=== PATIENT | male | born 1950 | race Hispanic/Latino ===

== ENCOUNTER 2020-05-31 08:17 | Observation (INO) | payer MEDICARE ==
[~2020-05-31] VITALS: Ht 167.6 cm; Wt 79.8 kg
[2020-05-31] MEDS ORDERED: CEFEPIME 1GM/NS 0.9% 50 ML 50 ML IV STA (08:28)
[2020-05-31] MEDS ORDERED: PIPER-TAZ 3.375 GM 50 ML IV STA (08:40)
[2020-05-31 08:50] LABS: BASOPHILS # (AUTO) 0.1 (0.0-0.1); EOSINOPHILS # (AUTO) 0.3 (0.0-0.4); EOSINOPHILS % 3.6 % (0.0-6.0); HEMATOCRIT 42.1 % (38.2-49.6); HEMOGLOBIN 14.2 g/dL (14.0-18.0); LYMPHOCYTES # (AUTO) 3.7 (1.0-3.2); LYMPHOCYTES % 48.4 % (18.0-39.1); MEAN CORPUSCULAR HEMOGLOBIN 30.3 pg (28-32); MEAN CORPUSCULAR HGB CONC 33.7 g/dL (31-35); MEAN CORPUSCULAR VOLUME 89.8 fL (81-99); MONOCYTES # (AUTO) 0.4 (0.2-0.8); MONOCYTES % 5.1 % (4.4-11.3); NEUTROPHILS # (AUTO) 3.2 (2.1-6.9); NEUTROPHILS % 41.6 % (38.7-80.0); PLATELET COUNT 146 x10e3/uL (140-360); RED BLOOD COUNT 4.69 x10e6/uL (4.3-5.7)
[2020-05-31 08:53] LABS: BILIRUBIN,URINE NEGATIVE (NEGATIVE); CLARITY,URINE CLEAR (CLEAR); COLOR,URINE YELLOW (YELLOW); KETONES,URINE NEGATIVE (NEGATIVE); LEUKOCYTE ESTERASE ,URINE NEGATIVE (NEGATIVE); NITRITE,URINE NEGATIVE (NEGATIVE); PROTEIN,URINE DIPSTICK TRACE (NEGATIVE); URINE UROBILINOGEN 1 mg/dL (0.2 - 1)
[2020-05-31 09:08] LABS: ALANINE AMINOTRANSFERASE 12 IU/L (0-55); ALBUMIN 3.9 g/dL (3.5-5.0); ALBUMIN/GLOBULIN RATIO 1.3 (0.8-2.0); ALKALINE PHOSPHATASE 72 IU/L (40-150); ANION GAP 12.1 mmol/L (8-16); BLOOD UREA NITROGEN 12 mg/dL (7-26); BUN/CREATININE RATIO 14 (6-25); CARBON DIOXIDE 26 mmol/L (22-29); CHLORIDE 110 mmol/L (98-107); CREATINE KINASE 64 IU/L (30-200); CREATININE, SERUM 0.83 mg/dL (0.72-1.25); EST GLOMERULAR FILTRATION RATE > 60 ML/MIN (60-); GLUCOSE 154 mg/dL (74-118); POTASSIUM 4.1 mmol/L (3.5-5.1); SODIUM 144 mmol/L (136-145)
[2020-05-31 09:12] LABS: BACTERIA,URINE RARE /HPF; EPITHELIAL CELLS,URINE MODERATE /LPF; RBC,URINE 0-5 /HPF (0-5); WBC,URINE (MAN) 0-5 /HPF (0-5)
[2020-05-31] MEDS ORDERED: METFORMIN HCL500 MG PO (09:25)
[2020-05-31] MEDS ORDERED: GLIPIZIDE5 MG PO (09:25)
[2020-05-31] MEDS ORDERED: CARVEDILOL12.5 MG PO (09:25)
[2020-05-31 09:58] LABS: EOSINOPHILS % (MANUAL) 2 % (0-7); LYMPHOCYTES % (MANUAL) 44 % (19-48); MONOCYTES % (MANUAL) 2 % (3.4-9.0); NEUTROPHILS % (MANUAL) 42 % (40-74); PLATELET ESTIMATE ADEQUATE; PLATELET MORPHOLOGY COMMENT NORMAL; RBC MORPHOLOGY COMMENT NORMAL
[2020-05-31] MEDS ORDERED: SODIUM CHLORIDE 0.9% 50ML 50 ML ONE (09:58)
[2020-05-31] MEDS ORDERED: IOPAMIDOL 370 MG/ML 200 ML INFUS..BTL INJ ONE (09:59)
--- NOTE | 2020-05-31 10:56 | Diagnostic Imaging Report ---
CT of the abdomen and pelvis. Comparison: None Clinical History: Right-sided abdominal pain Technique: Helical CT scan of the abdomen and pelvis was performed. Intravenous contrast administration was utilized. Oral contrast administration was not utilized. Coronal and sagittal reconstructions were generated from the raw data. Multiple images were submitted for interpretation. This exam was performed according to our departmental dose-optimization program which includes automated exposure control, adjustment of the mA and/or kV according to patient size Discussion: Inferior chest: Unremarkable. Liver: Mild diffuse fatty infiltration. Spleen: Unremarkable Pancreas: Unremarkable Biliary tree and gallbladder: Unremarkable Adrenal glands: Unremarkable Kidneys and ureters: There is 6 x 5 cm inferior pole are mostly exophytic cyst with postcontrast 8 Hounsfield unit density of the contents, thin septations and few calcifications. This would qualify as a Bosniak 2F cyst and should be followed up with a CT in 3-6 months. There is also presence of cortical thinning in the left mid pole of the kidney overlying the calyx. This could represent a previous infection. Infarction is another less likely possibility. There is also cortical thinning anteriorly in the inferior pole of the left kidney again in close proximity to a calyx. This could represent another area of past infection. Vasculature: There is atherosclerotic calcification of aorta and its major branches. There is an approximately 3.8 x 3.7 cm infrarenal fusiform abdominal aortic aneurysm with extensive mural thrombus. It terminates above the aortic bifurcation. It should be followed up. Lymph nodes: No lymphadenopathy Bowel: Unremarkable Pelvis: Urinary bladder is unremarkable. Prostate unremarkable. Seminal vesicles unremarkable. Pelvic wall unremarkable. Peritoneum: Unremarkable Perineal compartments: unremarkable. Fluid: No free fluid Bones: Degenerative changes Body wall: Unremarkable Impression: 1. Bosniak 2F right renal cyst that needs imaging follow-up in 3-6 months. Small infrarenal fusiform abdominal aortic aneurysm with mural thrombus measuring approximately 3.8 cm. It needs imaging follow-up. Mild diffuse fatty infiltration of the liver. No acute abnormalities to explain right lower quadrant abdominal pain otherwise. Signed by: Bautista Vigil MD on 05/31/2020 10:53 AM
--- NOTE | 2020-05-31 11:27 | Emergency Department Note ---
History of Present Illnes History of Present Illness Chief Complaint: Abdominal Complaints History of Present Illness This is a 70 year old male arrives the ED with diffuse abdominal pain for several weeks now worsening.. Historian: Patient Arrival Mode: Car Onset (how long ago): day(s) Radiation: Reports abdomen Severity: moderate Onset quality: gradual Timing of current episode: intermittent Progression: worsening Chronicity: new Relieving factors: none Past Medical/Family History Physician Review I have reviewed the patient's past medical and family history. Any updates have been documented here. Past Medical History Recent Fever: No Clinical Suspicion of Infectio: No New/Unexplained Change in Ment: No Past Medical History: Hypertension, Diabetes, A-Fib, Hyperlipedemia Past Surgical History: None Social History Smoking Cessation: Never Smoker Counseling Performed: No Alcohol Use: None Any Illegal Drug Use: No Physically hurt or threatened: No Other Any Pre-Existing Lines (PICC,: No Review of Systems Review of Systems Constitutional: Reports no symptoms EENTM: Reports no symptoms Cardiovascular: Reports no symptoms Respiratory: Reports no symptoms Gastrointestinal: Reports as per HPI, Reports abdominal pain Genitourinary: Reports no symptoms Musculoskeletal: Reports no symptoms Integumentary: Reports no symptoms Neurological: Reports no symptoms Psychological: Reports no symptoms Endocrine: Reports no symptoms Hematological/Lymphatic: Reports no symptoms Physical Exam Related Data Allergies: Coded Allergies: cefdinir (Verified Allergy, Unknown, 05/31/20) Triage Vital Signs Vital Signs Date Time Temp Pulse Resp B/P (MAP) Pulse Ox O2 Delivery O2 Flow Rate FiO2 05/31/20 08:23 97.9 105 20 132/93 100 Room Air Vital signs reviewed: Yes Physical Exam CONSTITUTIONAL Constitutional: Present well-developed, Present well-nourished HENT HENT: Present normocephalic, Present atraumatic, Present oropharynx clear/moist, Present nose normal HENT L/R: Present left ext ear normal, Present right ext ear normal EYES Eyes: Reports PERRL, Reports conjunctivae normal NECK Neck: Present ROM normal PULMONARY Pulmonary: Present effort normal, Present breath sounds normal CARDIOVASCULAR Cardiovascular: Present regular rhythm, Present heart sounds normal, Present capillary refill normal, Present normal rate GASTROINTESTINAL Abdominal: Present soft, Present bowel sounds normal, Present tender GENITOURINARY Genitourinary: Present exam deferred SKIN Skin: Present warm, Present dry MUSCULOSKELETAL Musculoskeletal: Present ROM normal NEUROLOGICAL Neurological: Present alert, Present oriented x 3, Present no gross motor or sensory deficits PSYCHOLOGICAL Psychological: Present mood/affect normal, Present judgement normal Results Laboratory Result Diagram: 05/31/2032 05/31/20 0832 Laboratory Laboratory Tests Test 05/31/20 08:32 White Blood Count 7.68 x10e3/uL (4.8-10.8) Red Blood Count 4.69 x10e6/uL (4.3-5.7) Hemoglobin 14.2 g/dL (14.0-18.0) Hematocrit 42.1 % (38.2-49.6) Mean Corpuscular Volume 89.8 fL (81-99) Mean Corpuscular Hemoglobin 30.3 pg (28-32) Mean Corpuscular Hemoglobin Concent 33.7 g/dL (31-35) Red Cell Distribution Width 13.0 % (11.7-14.4) Platelet Count 146 x10e3/uL (140-360) Neutrophils (%) (Auto) 41.6 % (38.7-80.0) Lymphocytes (%) (Auto) 48.4 % (18.0-39.1) Monocytes (%) (Auto) 5.1 % (4.4-11.3) Eosinophils (%) (Auto) 3.6 % (0.0-6.0) Basophils (%) (Auto) 1.0 % (0.0-1.0) Neutrophils # (Auto) 3.2 (2.1-6.9) Lymphocytes # (Auto) 3.7 (1.0-3.2) Monocytes # (Auto) 0.4 (0.2-0.8) Eosinophils # (Auto) 0.3 (0.0-0.4) Basophils # (Auto) 0.1 (0.0-0.1) Absolute Immature Granulocyte (auto 0.02 x10e3/uL (0-0.1) Differential Total Cells Counted 100 Neutrophils % (Manual) 42 % (40-74) Lymphocytes % (Manual) 44 % (19-48) Monocytes % (Manual) 2 % (3.4-9.0) Eosinophils % (Manual) 2 % (0-7) Basophils % (Manual) 2 % (0-1.5) Reactive Lymphocytes 8 Platelet Estimate Adequate Platelet Morphology Comment Normal Red Cell Morphology Comment Normal Urine Color Yellow (YELLOW) Urine Clarity Clear (CLEAR) Urine pH 7 (5 - 7) Urine Specific [place] 1.020 (1.010-1.025) Urine Protein Trace (NEGATIVE) Urine Glucose (UA) Negative (NEGATIVE) Urine Ketones Negative (NEGATIVE) Urine Blood Negative (NEGATIVE) Urine Nitrite Negative (NEGATIVE) Urine Bilirubin Negative (NEGATIVE) Urine Urobilinogen 1 mg/dL (0.2 - 1) Urine Leukocyte Esterase Negative (NEGATIVE) Urine RBC 0-5 /HPF (0-5) Urine WBC 0-5 /HPF (0-5) Urine Epithelial Cells Moderate /LPF (NONE) Urine Bacteria Rare /HPF (NONE) Sodium Level 144 mmol/L (136-145) Potassium Level 4.1 mmol/L (3.5-5.1) Chloride Level 110 mmol/L (98-107) Carbon Dioxide Level 26 mmol/L (22-29) Anion Gap 12.1 mmol/L (8-16) Blood Urea Nitrogen 12 mg/dL (7-26) Creatinine 0.83 mg/dL (0.72-1.25) Estimat Glomerular Filtration Rate > 60 ML/MIN (60-) BUN/Creatinine Ratio 14 (6-25) Glucose Level 154 mg/dL (74-118) Lactic Acid Level 1.2 mmol/L (0.5-2.0) Calcium Level 9.0 mg/dL (8.4-10.2) Total Bilirubin 0.5 mg/dL (0.2-1.2) Aspartate Amino Transf (AST/SGOT) 17 IU/L (5-34) Alanine Aminotransferase (ALT/SGPT) 12 IU/L (0-55) Alkaline Phosphatase 72 IU/L (40-150) Creatine Kinase 64 IU/L (30-200) Creatine Kinase MB 0.70 ng/mL (0-5.0) Troponin I 0.014 ng/mL (0-0.300) Total Protein 6.8 g/dL (6.5-8.1) Albumin 3.9 g/dL (3.5-5.0) Globulin 2.9 g/dL (2.3-3.5) Albumin/Globulin Ratio 1.3 (0.8-2.0) Lab results reviewed: Yes Imaging Imaging results reviewed: Yes Impressions Impression: 1. Bosniak 2F right renal cyst that needs imaging follow-up in 3-6 months. Small infrarenal fusiform abdominal aortic aneurysm with mural thrombus measuring approximately 3.8 cm. It needs imaging follow-up. Mild diffuse fatty infiltration of the liver. No acute abnormalities to explain right lower quadrant abdominal pain otherwise. Signed by: Bautista Vigil MD on 05/31/2020 10:53 AM Assessment & Plan Medical Decision Making MDM 70-year-old male arrives to the ED with complaints of abdominal pain. Concerns of mural thrombus and a abdominal aortic aneurysm noted. Case discussed with CT surgeon Dr. Nash. Patient admitted for further workup and management. Assessment & Plan Final Impression: (1) AAA (abdominal aortic aneurysm) Depart Disposition: ADMITTED Last Vital Signs Date Time Temp Pulse Resp B/P (MAP) Pulse Ox O2 Delivery O2 Flow Rate FiO2 05/31/20 10:45 82 18 138/82 100 Room Air 05/31/20 08:23 97.9 Home Meds Active Scripts Prednisone (PREDNISONE) 20 Mg Tab, 20 MG PO TID for 5 Days Prov:DIVYA CHAKRABORTY [employer] 06/01/20 Tramadol Hcl/Acetaminophen (ULTRACET TABLET) 1 Each Tablet, 1 TAB PO Q6H PRN for PAIN, #20 Prov:DIVYA CHAKRABORTY [employer] 06/01/20 Valacyclovir Hcl (VALTREX) 500 Mg Tab, 1000 MG PO TID for 7 Days, TAB Prov:DIVYA CHAKRABORTY [employer] 06/01/20 Reported Medications Carvedilol (CARVEDILOL) 12.5 Mg Tablet, 6.25 MG PO DAILY, #60 TAB 05/31/20 Glipizide (GLIPIZIDE) 5 Mg Tablet, 5 MG PO DAILY, TAB 05/31/20 Metformin Hcl (METFORMIN HCL) 500 Mg Tablet, 500 MG PO BID, #60 TAB 05/31/20 Medications in the ED Cefepime HCl 50 ml @ 100 mls/hr Q24H STAT IV ; Start 05/31/20 at 08:28; Stop 05/31/20 at 08:57; Status UNV Piperacillin Sod/ Tazobactam Sod 50 ml @ 50 mls/hr NOW STAT IV Last administered on 05/31/20at 09:20; Admin Dose 50 MLS/HR; Start 05/31/20 at 08:40; Stop 05/31/20 at 09:39; Status DC Sodium Chloride 50 ml @ ud STK-MED ONCE .ROUTE ; Start 05/31/20 at 09:58; Stop 05/31/20 at 09:51; Status DC Iopamidol 74,000 mg STK-MED ONCE INJ ; Start 05/31/20 at 09:59; Stop 05/31/20 at 09:52; Status DC JANINA CARO DO May 31, 2020 11:27
--- NOTE | 2020-05-31 11:30 | NUR ---
CULTURAL LINK USED: GREGORIO PATIENT SITTING UP EATING, FAMILY AT THE BEDSIDE. RE/RE-INFORCED TO PATIENT TO NOT EAT UNTILL THE NURSE CHECKS THE BLOOD SUGAR. HE VERBALIZED UNDERSTANDING AGAIN. PATIENT AWARE HE WILL BE ADMITTED TO HOSPITAL AND DR. CARO WILL BE IN TO SPEAK WITH HIM SHORTLY TO EXPLAIN RESULTS. RECLARIFIED HOME MEDICATIONS. PATIENT HAS AFIB AND HAS NOT BEEN ON A BLOOD THINNER X 6 MTHS BECAUSE THE FAMILY THINKS HE IS GOING TO BLEED TO . ALSO STATED THAT THEY DO NOT KNOW WHAT THE NAME OF THE MEDICATION IS THAT HE WAS TAKING. THEY ALSO DID NOT MAKE THE PRESCRIBING DOCTOR AWARE THAT HE STOPPED.
[2020-05-31] MEDS ORDERED: DEXTROSE 50% SYRINGE 50 ML IV PRN (12:30)
--- NOTE | 2020-05-31 12:52 | NUR ---
Received patient via wheelchair from ER. Accompanied by daughter. AAOX4 to time, person, place, situation. Respirations even and unlabored. Telemetry #01 afib 79. Denies chest pain. Oriented to room. Instructed to use call light for assistance. Voiced understanding.
[2020-05-31 13:00] VITALS: BP 161/96
[2020-05-31 13:25] VITALS: BP 161/96
[2020-05-31 13:30] VITALS: BP 161/96
[2020-05-31 15:58] VITALS: BP 144/83
[2020-05-31] MEDS: INSULIN LISPRO 100 UNIT/1 ML 3ML VIAL SQ SCH ×2 (16:32→21:30)
[2020-05-31 16:38] LABS: CREATINE KINASE MB 0.7 ng/mL (0-5.0)
[2020-05-31] MEDS ORDERED: INFLUENZA VIRUS VAC SPLIT INJ 0.5 ML SYR IM SCH (17:00)
--- NOTE | 2020-05-31 19:28 | NUR ---
Report given to oncoming nurse of patient's status. No s/s of acute distress noted. Side rails upx2, call light within reach.
[2020-05-31 20:00] VITALS: BP 124/90
[2020-05-31] MEDS ORDERED: HYDRALAZINE HCL 20 MG/ML VIAL IV PRN (20:00)
[2020-05-31] MEDS ORDERED: ACETAMINOPHEN/CODEINE 300MG - 30MG TAB PO PRN (20:00)
[2020-05-31] MEDS ORDERED: ONDANSETRON HCL INJ 2MG/ML 2ML 2 MG/ML VIAL IV PRN (20:00)
[2020-05-31] MEDS ORDERED: ACETAMINOPHEN 325 MG TAB PO PRN (20:00)
[2020-05-31 22:00] VITALS: BP 124/90
[2020-06-01] VITALS: BP 139/87
--- NOTE | 2020-06-01 02:39 | Consultation ---
DATE OF CONSULTATION: 05/31/2020 REASON FOR CONSULT: Abdominal aortic aneurysm; requested by Dr. Merritt David. HISTORY OF PRESENT ILLNESS: I saw and evaluated this patient on May 31, 2020. He is a very nice 70-year-old man who presented to the emergency room with lower abdominal pain yesterday. The pain would come on during the day. He has not had pain like this previously. The patient is a Czech speaker and I interviewed with him with his present, who also speaks Czech, and with their daughter who speaks fluent Czech and Angolan on speaker phone. In the emergency room, a CT scan was obtained, which I have reviewed. This shows a 3.8, infrarenal aneurysm with some laminar clot. There was no evidence of retroperitoneal bleed or rupture. No other abdominal abnormalities were noted. The patient is a noninsulin dependent diabetic and also hypertensive on one medication. Denies any history of myocardial infarction, stroke, PND, or orthopnea. No fevers or chills. SOCIAL HISTORY: Positive for one pack per day smoker for many years. Occasional alcohol. ALLERGIES: NONE KNOWN. MEDICATIONS: Carvedilol, glipizide, metformin, antihypertensives. PAST MEDICAL HISTORY: Positive for non-insulin dependent diabetes and hypertension. PAST SURGICAL HISTORY: Unremarkable. REVIEW OF SYSTEMS: GENERAL: Negative for fatigue or malaise. NEUROLOGIC: Negative for focal weakness in extremities or dysarthria. HEENT: Negative for decreased vision or decreased hearing. CARDIAC: Negative for chest pain or palpitation. PULMONARY: Negative for shortness of breath or wheezing. GI: No constipation or diarrhea. : Negative for hematuria or dysuria. ENDOCRINE: Negative for polyuria or polydipsia. SKIN: No rashes. INFECTIOUS: Negative for fevers or chills. PSYCHIATRIC: Negative for depression or anxiety. HEMATOLOGIC: Negative for clotting or bleeding. PHYSICAL EXAMINATION: GENERAL: Well-developed, well-nourished man, lying flat in bed. is at the bedside. VITAL SIGNS: Blood pressure 130/70, pulse 80 and regular, respirations 16 and unlabored. NECK: Supple and nontender. No JVD. CARDIAC: Shows a regular rate and rhythm. Normal S1 and S2. No S3 or S4. LUNGS: Clear to auscultation and percussion bilaterally. ABDOMEN: Globoid, benign. Good bowel sounds. No palpable masses. No palpable pulsatile mass. Nontender. No rebound. SKIN: No rashes or nonhealing ulcers. BACK: No CVA tenderness. No ecchymoses. No muscular spasm. VASCULAR: Carotids 2+/2+ bilaterally. No carotid bruits. Radials and femorals 2+/2+ bilaterally. Posterior tibialis and dorsalis pedis pulses 2+/2+ bilaterally. MUSCULOSKELETAL: Full range of motion at all joints. No joint swelling. NEUROLOGIC: Cranial nerves II through XII intact. Sensation intact to light touch and pinprick bilaterally. Strength 5/5 in all extremities. LYMPHATIC: Negative for cervical, clavicular, femoral adenopathy. LABORATORY DATA: A CT scan images are reviewed and are as above. White count 7.6, hemoglobin 14.2, hematocrit 42.1, platelet count 146,000. Sodium 144, potassium 4.1. Liver function tests are normal. Creatinine 0.83. IMPRESSION: A 3.8 cm infrarenal aortic aneurysm. No intervention necessary at this time. I recommended a repeat CT scan in 3-4 months. I gave the patient's my card. My office will contact her and I gave her my phone number if there are any problems with the contact. They have a primary care physician, Dr. Regan, who they will also be seeing. Dr. David is managing the patient as an inpatient. Thank you very much for asking me see this nice gentleman. MD CATIE Fletcher/JACQUI /[id number]
[2020-06-01 04:00] VITALS: BP 139/96
[2020-06-01] MEDS: FAMOTIDINE 20 MG TAB PO SCH ×2 (05:55→07:30)
[2020-06-01 06:13] LABS: BASOPHILS # (AUTO) 0.1 (0.0-0.1); BASOPHILS % 0.9 % (0.0-1.0); EOSINOPHILS # (AUTO) 0.3 (0.0-0.4); EOSINOPHILS % 3.8 % (0.0-6.0); HEMATOCRIT 40.4 % (38.2-49.6); HEMOGLOBIN 13.7 g/dL (14.0-18.0); LYMPHOCYTES # (AUTO) 3.4 (1.0-3.2); LYMPHOCYTES % 41.8 % (18.0-39.1); MEAN CORPUSCULAR HGB CONC 33.9 g/dL (31-35); MEAN CORPUSCULAR VOLUME 91.4 fL (81-99); MONOCYTES # (AUTO) 0.4 (0.2-0.8); MONOCYTES % 4.8 % (4.4-11.3); NEUTROPHILS % 48.5 % (38.7-80.0); PLATELET COUNT 141 x10e3/uL (140-360); RED BLOOD COUNT 4.42 x10e6/uL (4.3-5.7); RED CELL DISTRIBUTION WIDTH 12.7 % (11.7-14.4)
[2020-06-01 06:48] LABS: ALANINE AMINOTRANSFERASE 11 IU/L (0-55); ALBUMIN 3.6 g/dL (3.5-5.0); ALBUMIN/GLOBULIN RATIO 1.3 (0.8-2.0); ALKALINE PHOSPHATASE 69 IU/L (40-150); ANION GAP 12.1 mmol/L (8-16); BLOOD UREA NITROGEN 19 mg/dL (7-26); BUN/CREATININE RATIO 22 (6-25); CALCIUM 9.1 mg/dL (8.4-10.2); CARBON DIOXIDE 26 mmol/L (22-29); CHLORIDE 109 mmol/L (98-107); CREATININE, SERUM 0.86 mg/dL (0.72-1.25); EST GLOMERULAR FILTRATION RATE > 60 ML/MIN (60-); GLUCOSE 153 mg/dL (74-118); POTASSIUM 4.1 mmol/L (3.5-5.1); SODIUM 143 mmol/L (136-145)
[2020-06-01 06:49] LABS: EOSINOPHILS % (MANUAL) 4 % (0-7); LYMPHOCYTES % (MANUAL) 42 % (19-48); MONOCYTES % (MANUAL) 5 % (3.4-9.0); NEUTROPHILS % (MANUAL) 49 % (40-74); PLATELET ESTIMATE ADEQUATE; PLATELET MORPHOLOGY COMMENT NORMAL; RBC MORPHOLOGY COMMENT NORMAL
[2020-06-01 06:57] LABS: CREATINE KINASE MB 0.6 ng/mL (0-5.0)
--- NOTE | 2020-06-01 07:10 | NUR ---
RCD PT AT BED PT IS ALERT AND ORIENTED PT RESTING ON BED IV PATENT BED LOW AND LOCKED CALL LIGHT IN REACH
[2020-06-01] MEDS: INSULIN LISPRO 100 UNIT/1 ML 3ML VIAL SQ SCH ×2 (07:30→11:26)
[2020-06-01 07:41] VITALS: BP 147/96
[2020-06-01 08:43] VITALS: BP 147/96
[2020-06-01] MEDS ORDERED: CARVEDILOL 12.5 MG TAB PO SCH (09:00)
--- NOTE | 2020-06-01 09:16 | Diagnostic Imaging Report ---
EXAM: Right upper quadrant abdominal ultrasound INDICATION: Right upper quadrant pain COMPARISON: CT abdomen and pelvis of 05/31/2020 TECHNIQUE: Transverse and longitudinal images of the right upper quadrant abdomen were obtained FINDINGS: Liver: Size: 14.1 cm in the right midclavicular line, normal Appearance: Normal echogenicity, smooth contour Mass: No focal masses Gallbladder: No gallbladder distension, pericholecystic fluid, wall thickening, stone, or reported sonographic Rizvi's sign. Gallbladder wall measures 2 mm. Bile Ducts: Intrahepatic Ducts: No dilatation Extrahepatic Ducts: Common bile duct measures 3 mm Pancreas: Visualized portions of the pancreatic head, neck and proximal body are normal. Kidney: The right kidney measures 10.3 cm without evidence of hydronephrosis or stone. 4.4 x 5.3 x 5.1 cm right lower pole exophytic renal cyst with small amount of internal echogenicity and thin peripheral septations. Vessels: Aorta: Visualized portions are normal Inferior Vena Cava: Visualized portions are normal Main Portal Vein: 0 point cm, normal size with hepatopetal flow. Free Fluid: No ascites or pleural effusion IMPRESSION: No sonographic evidence of cholelithiasis or cholecystitis. Right lower pole renal cyst (Bosniak 2) Signed by: Darcie Wills MD on 06/01/2020 9:12 AM
[2020-06-01] MEDS ORDERED: ONDANSETRON HCL 4 MG ORAL DISINTEGRATING TAB PO PRN (10:45)
[2020-06-01] MEDS ORDERED: PREDNISONE20 MG PO (10:46)
[2020-06-01] MEDS ORDERED: ULTRACET TABLE1 EACH PO (10:46)
[2020-06-01] MEDS ORDERED: VALTREX500 MG PO (10:46)
[2020-06-01 11:32] VITALS: BP 143/93
--- NOTE | 2020-06-01 12:30 | NUR ---
DISCHARGE INSTRUCTIONS GIVEN BY [place] [place] [id number]
--- NOTE | 2020-06-01 12:30 | NUR ---
PT WENT HOME IN SAFE CONDITION WITH HIS DAUGHTER
[2020-06-01] MEDS ORDERED: BACITRACIN ZINC 15 GM OINT TOP SCH (13:30)
--- OUTSIDE RECORDS SUMMARY | 2020-06-02 19:03 | XMS REPORT | Continuity of Care Document ---
Author Author [facility] t Organization [facility] Address [address] [place] [address] Dr. Ortega [address] [place] [id number] Phone Unavailable Care Team Providers Care County Court Judge Name Role Phone JAMEL ROSS Attphil Unavailable JAMEL ROSS Unavailable Problems This patient has no known problems. Allergies, Adverse Reactions, Alerts This patient has no known allergies or adverse reactions. Medications This patient has no known medications. Procedures This patient has no known procedures. Results Test Description Test Time Test Comments Results Result Comments Source [facility] 2020-06-01 09:10:00 [facility] CENTERName: LORETA FRANKLIN : 1950 Sex: M [facility] [address] [place] [id number] Patient Name: LORETA FRANKLIN MR #: [id number] : 1950 Age/Sex: 70/M Req #: [id number] [facility] Physician: JAMEL ROSS MD Ordered by: Nalini Chakraborty TEACHER [employer]ISUALLY IMPAIRED Report #: [id number] Location: MED/SURG2 Room/Bed: [facility] Procedure: [id number] US/US GALLBLADDER Exam Date: 06/01/20 Exam Time: 0744 REPORT STATUS: Signed EXAM: Right upper quadrant abdominal ul trasound INDICATION: Right upper quadrant pain COMPARISON: CT abdomen and pelvis of 05/31/2020 TECHNIQUE: Transverse and longitudinal images of the right upper quadrant abdomen were obtained FINDINGS: Liver: Size: 14.1 cm in the right midclavicular line, normal Appearance: Normal echogenicity, smooth contour Mass: No focal masses Gallbladder: No gallbladder distension, pericholecystic fluid, wall thickening, stone, or reported sonographic Rizvi's sign. Gallbladder wall measures 2 mm. Bile Ducts: Intrahepatic Ducts: No dilatation Extrahepatic Ducts: Common bile duct measures 3 mm Pancreas: Visualized portions of the pancreatic head, neck and proximal body are normal. Kidney: The right kidney measures 10.3 cm without evidence of hydronephrosis or stone. 4.4 x 5.3 x 5.1 cm right lower pole exophytic renal cyst with small amount of internal echogenicity and thin peripheral septations. Vessels: Aorta: Visualized portions are normal Inferior Vena Cava: Visualized portions are normal Main Portal Vein: 0 point cm, normal size with hepatopetal flow. Free Fluid: No ascites or pleural effusion IMPRESSION: No sonographic evidence of cholelithiasis or cholecystitis. Right lower pole renal cyst (Bosniak 2) Signed by: Giselle Yang MD on 06/01/2020 9:12 AM Dictated By: GISELLE YANG MD 1 Transcribed By: EL on 06/01/20911 COPY TO: NALINI CHAKRABORTY NP CT ABDOMEN/PELVIS W 2020-05-31 10:39:00 [facility] CENTERName: LORETA FRANKLIN : 1950 Sex: M [facility] [address] [id number] Patient Name: LORETA FRANKLIN MR #: [id number] : 1950 Age/Sex: 70/M Req #: [id number] Adm Physician: Ordered by: JANINA CARO DO Report #: [id number] Location: ER Room/Bed: Procedure: [id number] CT/CT ABDOMEN/PELVIS W Exam Date: 05/31/20 Exam Time: 1015 REPORT STATUS: Signed CT of the abdomen and pelvis. Comparison: None Clinical History: Right-sided abdominal pain Technique: Helical CT scan of the abdomen and pelvis was performed. Intravenous contrast administration was utilized. Oral contrast administration was not utilized. Coronal and sagittal reconstructions were generated from the raw data. Multiple images were submitted for interpretation. This exam was performed according to our departmental dose-optimization program which includes automated exposure control, adjustment of the mA and/or kV according to patient size Discussion: Inferior chest: Unremarkable. Liver: Mild diffuse fatty infiltration. Spleen: Unremarkable Pancreas: Unremarkable Biliary tree and gallbladder: Unremarkable Adrenal glands: Unremarkable Kidneys and ureters: There is 6 x 5 cm inferior pole are mostly exophytic cyst with postcontrast 8 Hounsfield unit density of the contents, thin septations and few calcifications. This would qualify as a Bosniak 2F cy st and should be followed up with a CT in 3-6 months. There is also presence of cortical thinning in the left mid pole of the kidney overlying the calyx. This could represent a previous infection. Infarction is another less likely possibility. There is also cortical thinning anteriorly in the inferior pole of the left kidney again in close proximity to a calyx. This could represent another area of past infection. Vasculature: There is atherosclerotic calcification of aorta and its major branches. There is an approximately 3.8 x 3.7 cm infrarenal fusiform abdominal aortic aneurysm with extensive mural thrombus. It terminates above the aortic bifurcation. It should be followed up. Lymph nodes: No lymphadenopathy Bowel: Unremarkable Pelvis: Urinary bladder is unremarkable. Prostate unremarkable. Seminal vesicles unremarkable. Pelvic wall unremarkable. Peritoneum: Unremarkable Perineal compartments: unremarkable. Fluid: No free fluid Bones: Degenerative changes Body wall: Unremarkable Impression: 1. Bosniak 2F right renal cyst that needs imaging follow-up in 3-6 months. Small infrarenal fusiform abdominal aortic aneurysm with mural thrombus measuring approximately 3.8 cm. It needs imaging follow-up. Mild diffuse fatty infiltration of the liver. No acute abnormalities to explain right lower quadrant abdominal pain otherwise. Signed by: Meghan Barbour MD on 05/31/2020 10:53 AM Dictated By: MEGHAN BARBOUR MD 1053 Transcribed By: EL on 05/31/20 105 3 COPY TO: JANINA CARO DO
--- NOTE | 2020-06-03 02:56 | Discharge Summary ---
ADMISSION DIAGNOSES: Shingles, type 2 diabetes, chronic atrial fibrillation, infrarenal abdominal aortic aneurysm. DISCHARGE DIAGNOSES: Shingles, type 2 diabetes, chronic atrial fibrillation, infrarenal abdominal aortic aneurysm. HISTORY: Type 2 diabetes, AFib. SURGICAL HISTORY: I and D of a back abscess. FAMILY HISTORY: The patient's daughter has diabetes. SOCIAL HISTORY: The patient admits to smoking one-half pack of cigarettes a day. HOSPITAL COURSE: A 70-year-old male admits with complaints of a painful rash to his right lower quadrant abdomen, that radiated to his back. The pain started last Saturday and the rash appeared soon after. The patient is unsure if he ever had chickenpox, but denies any history of shingles. On admission, CT of the abdomen and pelvis was done, which showed a Bosniak 2F right renal cyst, that needs followup imaging in 3 to 6 months. Small infrarenal fusiform abdominal aortic aneurysm with mural thrombus 3.8 cm. At this point, CV Surgery was consulted. Because of the size of the aneurysm, the patient is not a surgical candidate. A repeat CT was recommended for 3 to 4 months. The patient's received Dr. Saleh's contact information. The patient was advised that he will need to follow up and monitor his blood pressure very closely. The patient understands discharge instructions and agrees to plan. He was given new prescription for tramadol, Tylenol, Valtrex, and prednisone t.i.d. for 5 days. Dictated by Nalini Sanabria NP MD LACEY Fajardo/JACQUI /[id number]
== END 2020-06-01 12:30 | disposition home or self-care (01) ==
LOC: ER 08:35 → ERHOLD 11:16 → MED/SURG2 12:54
PROVIDERS: ADMIT Internal Medicine; ATTEND Internal Medicine
DX: B02.9 Zoster without complications (principal); I48.20 Chronic atrial fibrillation, unspecified; Z79.01 Long term (current) use of anticoagulants; I71.4 Abdominal aortic aneurysm, without rupture; F17.210 Nicotine dependence, cigarettes, uncomplicated; N28.1 Cyst of kidney, acquired; Z11.59 Encounter for screening for other viral diseases
CPT/HCPCS: 36415 ×2; 74177; 76705; 80053 ×2; 81001; 82550 ×2; 82553 ×2; 82948 ×2; 83605; 83690; 84484 ×2; 85025 ×2; 87040; 99251; 99284; G0378 ×2; J2543; Q9967; U0002